=== PATIENT | female | born 1970 | race Caucasian/White ===

== ENCOUNTER 2018-10-17 12:21 | Inpatient (IN) | payer OTHER ==
[~2018-10-17] VITALS: Ht 162.6 cm; Wt 72.6 kg
[2018-10-17 12:21] VITALS: BP 126/57
[2018-10-17 13:00] LABS: URINE BILIRUBIN NEGATIVE (Negative); URINE BLOOD NEGATIVE (Negative); URINE CLARITY CLEAR; URINE COLOR YELLOW; URINE GLUCOSE-RANDOM* NEGATIVE (Negative); URINE KETONES 1+ (Negative); URINE LEUKOCYTES NEGATIVE (Negative); URINE NITRITE NEGATIVE (Negative); URINE PROTEIN (DIPSTICK) TRACE (Negative); URINE UROBILINOGEN 0.2 E.U./dl (0.2-1.0)
[2018-10-17] MEDS ORDERED: WELLBUTRIN XL300 MG PO (13:00)
[2018-10-17] MEDS ORDERED: FLECAINIDE ACET50 M1 PO (13:00)
[2018-10-17 13:01] LABS: ABSOLUTE NEUTROPHILS 8.7 thou/uL (1.4-8.2); BASOPHILS 0.5 % (0.0-2.0); EOSINOPHILS 0.2 % (0.0-3.0); HEMATOCRIT 42.7 % (37.0-47.0); HEMOGLOBIN 14.4 gm/dL (12.0-15.0); LYMPHOCYTES 16.4 % (24.0-44.0); MCH 30.7 pg (26.0-34.0); MCHC 33.8 g/dL (28.0-37.0); MCV 90.9 fL (80.0-100.0); PLATELET COUNT 275 thou/uL (150-400); POLYS 78.9 % (36.0-66.0); RDW 12.8 % (10.5-14.5)
[2018-10-17] MEDS ORDERED: LO LOESTRIN FE1 EACH PO (13:01)
[2018-10-17] MEDS ORDERED: BYSTOLIC2.5 MG PO (13:01)
[2018-10-17] MEDS ORDERED: SYNTHROID100 MC1 PO (13:01)
[2018-10-17] MEDS ORDERED: LEXAPRO 10 MG T10 M1 PO (13:02)
[2018-10-17 13:09] LABS: CALCIUM 9.6 mg/dL (8.5-10.1); CREATININE 1.1 mg/dL (0.6-1.0); POTASSIUM 4.1 mmol/L (3.5-5.1)
[2018-10-17 13:15] LABS: ALBUMIN 3.9 g/dL (3.4-5.0); TOTAL BILIRUBIN 0.7 mg/dL (<0.1-1.0); TOTAL PROTEIN 7.6 g/dL (6.4-8.2)
[2018-10-17 14:08] VITALS: BP 140/100
--- NOTE | 2018-10-17 14:13 | NUR ---
INPATIENT UNIT CALLED FOR REPORT, PER STAFF ANSWERING PHONE THE RECEIVING NURSE WAS IN A PT ROOM AND WILL CALL BACK FOR REPORT
[2018-10-17 14:28] VITALS: BP 152/94
--- NOTE | 2018-10-17 14:52 | NUR ---
REPORT GIVEN TO PADILLA IN PREOP; REQUESTING IV TEAM TO INPT ROOM FOR 2ND IV PLACE MENT
--- NOTE | 2018-10-17 15:53 | NUR ---
IV TEAM REQUESTED TO INPT ROOM FOR 2ND IV PLACEMENT
[2018-10-17 15:58] VITALS: BP 132/81
--- NOTE | 2018-10-17 16:04 | NUR ---
ARIE, PHARMACIST, WILL SEND CEFTRIAXONE TO INPT ROOM FOR ADMIN ONCE 2ND IV PLACED BY ANNA ESCALERA RN; PADILLA IN SURGERY AWARE OF SITUATION
--- NOTE | 2018-10-17 18:17 | NUR ---
48 YO FEMALE ADMITTED TO 449 BY CART FROM ED. A&OX4, AMBULATED WITH STANDBY ASSIST. IV WAS INTACT IN L FA INFUSING LR. PT WAS IN PAIN UPON ADMISSION AT 7/10 AND VOMITING. FAMILY FREIND AT HER BEDSIDE. CRITICAL LAB LACTIC ACID 5.3 CALLED TO OFFICE. ARRIVED AND WAS AWARE OF LAB RESULTS AND ORDERED PAIN AND N/V MEDS ALONG WITH BOLUS OF LR, AT THE SAME TIME ER ARRIVED TO SYSTEMS COORDINATOR PT FOR OR. WILL CONT POC.
[2018-10-17 19:32] VITALS: BP 131/88
[2018-10-17 23:30] VITALS: BP 123/82
[2018-10-18 00:09] VITALS: BP 100/67
--- NOTE | 2018-10-18 02:11 | NUR ---
ASSUMED CARE AROUND 1930. PT RETURNED FROM LAP APPY SURGERY WITH . LAP SITES CDI. PAIN MANANGED PER MD ORDER WITH ADEQUATE RELIEF. PT VOID 50CC TILL 10PM. BLADDER SCAN OBTAINED WITH 160CC. LATER PT STARTED VOIDING IN LARGER AMOUNT. NO S/S ACUTE DISTRESS NOTED OR REPORTED AT THIS TIME. WILL CONT TO MONITOR FOR ANY CHANGES IN CONDITION.
[2018-10-18 03:42] VITALS: BP 117/58
[2018-10-18 05:46] LABS: ALBUMIN 2.9 g/dL (3.4-5.0); CALCIUM 8.3 mg/dL (8.5-10.1); MAGNESIUM 1.7 mg/dL (1.8-2.4); PHOSPHORUS 3.6 mg/dL (2.5-4.9); POTASSIUM 3.7 mmol/L (3.5-5.1)
[2018-10-18 05:48] LABS: HEMATOCRIT 35.4 % (37.0-47.0); MCH 31.1 pg (26.0-34.0); MCHC 34.1 g/dL (28.0-37.0); MCV 91.4 fL (80.0-100.0); RBC 3.88 mil/uL (4.20-5.00); RDW 12.7 % (10.5-14.5); WBC 7.3 thou/uL (4.0-11.0)
[2018-10-18 06:06] LABS: HEMOGLOBIN 12.1 gm/dL (12.0-15.0)
[2018-10-18 08:13] VITALS: BP 94/51
[2018-10-18 13:57] VITALS: BP 92/53
--- NOTE | 2018-10-18 14:38 | NUR ---
PT ADMITTED RELATED TO APPENDICITIS. CM REVIEWED CHART AND SPOKE WITH CARE TEAM. CM MET WITH PT AT BEDSIDE THIS DAY. PT IS A&O X4. CM ROLE INTRODCUED. PT INDICATED SHE LIVES ALONE IN A HOUSE. 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 PT INDICATED SHE PLANS TO RETURN HOME ONCE MEDICALLY STABLE. CM TO FOLLOW INDICATED WITH DC PLANNING.
--- NOTE | 2018-10-18 15:40 | NUR ---
PATIENT PROGRESSING WELL TOWARDS DISCHARGE GOALS. AMBULATED IN OLSON WITH STANDBY ASSIST WITH IV PUMP. WALKED 2 LAPS AROUND 4W. UP TO BATHROOM AND VOIDING WITHOUT DIFFICULTY AND IN ADEQUATE AMOUNTS. TOLERATING REGULAR DIET. PAIN WELL CONTROLLED. 3 LAP INCISIONS INTACT WITH DERMABOND. ENCOURAGED COUGH AND DEEP BREATHE. SAT UP IN CHAIR FOR 2 HOURS. CALLING APPROPRIATELY FOR ASSIST TO BATHROOM. VERY PLEASANT AND COOPERATIVE PATIENT.
[2018-10-18 19:22] VITALS: BP 94/56
[2018-10-19 03:15] VITALS: BP 96/52
--- NOTE | 2018-10-19 04:02 | NUR ---
ASSUMED CARE OF PT @1900. PT A&OX4. C/O OF PAIN WHICH IS WELL CONTROLLED WITH CURRENT PAIN REGIMEN. NO C/O N/V. SCOPOLAMINE PATCH IN PLACED. LAP SITES; CLEAN, DRY AND INTACT. WILL CONT TO MONITOR FOR PAIN
[2018-10-19 08:00] VITALS: BP 111/59
--- NOTE | 2018-10-19 10:10 | NUR ---
per surgical instrument maker new order inpt
[2018-10-19] MEDS ORDERED: CEFDINIR300 MG PO (14:09)
[2018-10-19] MEDS ORDERED: METRONIDAZOLE500 M4 PO (14:10)
[2018-10-19] MEDS ORDERED: OXYCODONE HCL 55 MG PO (14:11)
[2018-10-19] MEDS ORDERED: IBUPROFEN 200200 M1 PO (14:11)
[2018-10-19] MEDS ORDERED: ACETAMINOPHEN325 M1 PO (14:11)
[2018-10-19] MEDS ORDERED: COLACE 100 MG100 MG PO (14:12)
[2018-10-19] MEDS ORDERED: MIRALAX17 GM PO (14:12)
--- NOTE | 2018-10-19 15:02 | NUR ---
pt still having some pain and hasn't had a bm. pt to dc home with no needs tomorrow monday. no oter cm intervention indicate. case closed.
--- NOTE | 2018-10-19 19:06 | PATH ---
[facility] [place] [address] [place] [address] PATHOLOGY RPT PROCEDURE Name: ODALIS CROOK Room #: 449-I ADM IN M.R.#: [id number] Admission: 10/17/18 Date of : 66 Discharge: Report #: [id number] Path Case #: [id number] [facility] Accession Number: [id number] . 01 Material submitted: . appendix - APPENDIX . 01 Clinical history: . Appendicitis . 02 Diagnosis: Appendix, appendectomy: - Acute appendicitis along with marked serositis. 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 02 Electronically signed: . Margarette Navarro MD, Pathologist NPI- [id number] . 01 Gross description: . The specimen is received in formalin, labeled "Odalis Crook, appendix" and consists of a curved appendix measuring 7.8 in length and up to 1.3 in diameter with mesoappendix measuring 2.6 thick. The serosa is pink-norman with fibrous adhesions and exudate. The margin is closed with a line of blake and inked black. Sectioning reveals a dilated lumen containing green-brown fecal material. Hand Rigger sections are submitted in A1. (SDY; 10/18/2018) SYU/SYU . 02 Pathologist provided ICD-10: K35.80, K65.8 . 02 CPT . 233571 Specimen Comment: A courtesy copy of this report has been sent to Specimen Comment: [phone]. Specimen Comment: Report sent to Performed at: [address], [place], [place] [id number] MD Anoop Guevara MD Phone: [phone] Performed at: [address] [id number] MD Margarette Navarro MD Phone: [phone]
[2018-10-19 19:45] VITALS: BP 106/49
--- NOTE | 2018-10-19 20:06 | NUR ---
ASSUMED CARE OF PATIENT AT 0715, PATIENT ALERT AND ORIENTED X 4. PATIENT UP WITH 1 ASSIST. PATIENT HAD APPENDIX REMOVED, 3 LAP SITES, C/D/I. PATIENT CONTINUES WITH PAIN WITH ABDOMEN. RECEVING DILAUDID 0.5MG AND OXYCODONE, NEW ORDERS FOR TYLENOL 650 MG ANG MOTRIN 600MG SCHEDULED. RECEIVED MIRALAX AND STOOL SOFTNER THIS AM, NO BM THIS SHIFT, SMALL AMT OF PASSING GAS. NO NAUSEA TGIS SHIFT, APPETITE STILL NOT VERY GOOD. RIGHT FOREARM IV NOT GOOD, CALLED IV TEAM NEW IV LEFT UPPER ARM. PATIENT MAY DISCHARGE TOMORROW IF PAIN BETTER. WILL CONTINUE TO MONITOR.
[2018-10-20 00:15] VITALS: BP 93/63
--- NOTE | 2018-10-20 03:00 | NUR ---
ASSUMED CARE OF PT @1900. PT A&OX4. PAIN IS WELL CONTROLLED WITH CURRENT REGIMEN. NO C/O OF N/V. SCOPOLAMINE PATCH IN PLACE. NO BM YET, ACTIVE BS. PT WALKED AROUND THE UNIT AND SAID SHE FELT BETTER. LAP APPY SITES LOOKS CLEAN, DRY AND INTACT. PT WALKS TO THE BR WITH STANDBY ASSIST
[2018-10-20 04:46] VITALS: BP 92/61
[2018-10-20 09:13] VITALS: BP 98/61
--- NOTE | 2018-10-20 12:08 | NUR ---
Received awake on bed. Due medications given as prescribed, able to swallow tablets w/o difficulty. A+Ox4. On room air. With LR at 75cc/hr, infusing well at L upper arm. Pt able to ambulate around the room. Complained of pain, pain medications given as prescribed. Pt' s abdominal surgical wounds checked- 3 wounds noted with dermabond, C/D/I- no signs of infection noted. Vital signs stable.
[2018-10-20 16:02] VITALS: BP 115/66
[2018-10-20 17:42] VITALS: BP 115/66
== END 2018-10-20 18:45 | disposition home or self-care (01) | DRG 339 ==
LOC: ER 12:21 → EROBS 13:56 → 4W 13:56
PROVIDERS: Emergency Medicine; ADMIT Surgery
PROC: 0DTJ4ZZ Resection of Appendix, Percutaneous Endoscopic Approach (ICD-10-PCS; principal; 2018-10-17)
DX: K35.33 Acute appendicitis with perforation, localized peritonitis, and gangrene, with abscess (principal); E87.2 Acidosis; K31.84 Gastroparesis; E03.9 Hypothyroidism, unspecified; F32.9 Major depressive disorder, single episode, unspecified; Z80.3 Family history of malignant neoplasm of breast; Z80.42 Family history of malignant neoplasm of prostate; Z88.8 Allergy status to other drugs, medicaments and biological substances; Z80.1 Family history of malignant neoplasm of trachea, bronchus and lung
CPT/HCPCS: 10040; 50010; 50101; 50249; 50411; 50555; 50558; 50739; 50740; 51489; 51975; 52265; 52266; 53307; 53310; 54022; 54118; 56526; 62110; 62900; 70005

== ENCOUNTER 2018-10-22 18:09 | Inpatient (IN) | payer OTHER ==
[~2018-10-22] VITALS: Ht 162.6 cm; Wt 68.9 kg
[~2018-10-22 18:09] MED LIST: ACETAMINOPHEN325 M1 PO; BYSTOLIC2.5 MG PO; CEFDINIR300 MG PO; COLACE 100 MG100 MG PO; FLECAINIDE ACET50 M1 PO; IBUPROFEN 200200 M1 PO; LEXAPRO 10 MG T10 M1 PO; LO LOESTRIN FE1 EACH PO; METRONIDAZOLE500 M4 PO; MIRALAX17 GM PO; OXYCODONE HCL 55 MG PO; SYNTHROID100 MC1 PO; WELLBUTRIN XL300 MG PO
[2018-10-22 18:10] VITALS: BP 135/85
[2018-10-22 19:05] LABS: ABSOLUTE NEUTROPHILS 8.6 thou/uL (1.4-8.2); EOSINOPHILS 0.2 % (0.0-3.0); HEMOGLOBIN 12.6 gm/dL (12.0-15.0); LYMPHOCYTES 9.4 % (24.0-44.0)
[2018-10-22 19:07] LABS: BASOPHILS 0.2 % (0.0-2.0); HEMATOCRIT 36.8 % (37.0-47.0); MCHC 34.1 g/dL (28.0-37.0); MONOCYTES 3.8 % (1.0-8.0); POLYS 86.4 % (36.0-66.0); RBC 4.05 mil/uL (4.20-5.00); RDW 12.6 % (10.5-14.5); WBC 12.7 thou/uL (4.0-11.0)
[2018-10-22 19:12] LABS: URINE BILIRUBIN NEGATIVE (Negative); URINE BLOOD NEGATIVE (Negative); URINE CLARITY CLEAR; URINE COLOR YELLOW; URINE GLUCOSE-RANDOM* NEGATIVE (Negative); URINE KETONES 3+ (Negative); URINE LEUKOCYTES-REFLEX NEGATIVE (Negative); URINE NITRITE-REFLEX NEGATIVE (Negative); URINE PROTEIN (DIPSTICK) NEGATIVE (Negative); URINE UROBILINOGEN 0.2 E.U./dl (0.2-1.0)
[2018-10-22 19:13] LABS: CALCIUM 8.6 mg/dL (8.5-10.1); CREATININE 0.8 mg/dL (0.6-1.0); POTASSIUM 4.5 mmol/L (3.5-5.1)
[2018-10-22 19:19] LABS: ALBUMIN 3.1 g/dL (3.4-5.0); TOTAL BILIRUBIN 0.4 mg/dL (<0.1-1.0); TOTAL PROTEIN 7.1 g/dL (6.4-8.2)
[2018-10-22 19:55] LABS: PLATELET COUNT 252 thou/uL (150-400)
[2018-10-22 22:11] VITALS: BP 146/86
[2018-10-22 23:15] VITALS: BP 125/77
[2018-10-23] MEDS ORDERED: FLEXERIL PO (02:57)
[2018-10-23] MEDS ORDERED: MINOCIN50 MG PO (02:57)
[2018-10-23] MEDS ORDERED: ONDANSETRON HCL4 M2 PO (02:59)
--- NOTE | 2018-10-23 04:10 | NUR ---
ASSUMED CARE OF PATIENT FROM ER. PAIN MANAGED AT THAT TIME. ADMISSION COMPLETE. NURSE PRACTITIONER IN TO SEE PATIENT. FLUIDS INFUSING. FRIEND AT BEDSIDE. C/O PAIN AND NAUSEA. 15 MINUTES LATER STATES ITS NOT ENOUGH. ORDERS OBTAINED FOR TORADOL. WILL CONTINUE TO MONITOR. NPO AFTER MIDNIGHT.
[2018-10-23 07:25] VITALS: BP 112/68
--- NOTE | 2018-10-23 12:49 | NUR ---
PT A&OX4, VSS, PAIN IN ABD. PT RESTING IN BED. DENIES N/V. PATIENT ADVANCED TO CLEAR LIQUIDS BUT DOES NOT WANT TO EAT AT THIS TIME. LAP SITES C/D/I, WILL CONTINUE TO MONITOR.
--- NOTE | 2018-10-23 13:58 | NUR ---
PT ADMITTED RELATED TO N/V. CM REVIEWED CHART AND SPOKE WITH CARE TEAM. CM MET WITH PT AT BEDSIDE THIS DAY. PT IS A&O X4. CM ROLE INTRODUCED. 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 PT INDICATED SHE PLANS TO RETURN HOME [place] MEDICALLY STABLE. CM TO FOLLOW INDICATED SHOULD ANY DC NEEDS ARISE.
[2018-10-23 14:52] VITALS: BP 124/82
[2018-10-23 19:05] VITALS: BP 134/87
--- NOTE | 2018-10-24 03:34 | NUR ---
ASSUMED CARE FROM DAY SHIFT PT GIVEN CLEAR LIQ DIET TOLERATED WELL WITHUT PAIN OR NAUSEA, DISCUSSED PLAN OF CARE VERBALIZED UNDERSTANDING. DENIES LOOSE STOOL PT RESTED WELL THROUGHOUT HOURLY ROUNDS, WILL CONTINUE WITH CURRENT PLAN OF CARE AND WILL REPORT CHANGES OR ABNORMAL FINDINGS.
--- NOTE | 2018-10-24 11:32 | NUR ---
PT A&OX4, VSS, DENIES PAIN AND N/V. PATIENT IS HAVING DIARRHEA BUT IS TAKING STOOL SOFTENERS. PATIENT AMBULATED IN HALLWAY, HAS BEEN SLEEPING IN ROOM FOR MOST OF THE DAY OTHERWISE. DIET ADVANCED TO REGULAR DIET AND IS TOLERATING. WILL CONTINUE TO MONITOR.
[2018-10-24 14:21] VITALS: BP 124/84
[2018-10-24 15:01] VITALS: BP 124/84
== END 2018-10-24 16:54 | disposition home or self-care (01) | DRG 392 ==
LOC: ER 18:09 → EROBS 21:07 → 4W 21:07
PROVIDERS: Physician Assistant; ADMIT Hospitalist
DX: K52.9 Noninfective gastroenteritis and colitis, unspecified (principal); K31.84 Gastroparesis; E03.9 Hypothyroidism, unspecified; F32.9 Major depressive disorder, single episode, unspecified; Z80.3 Family history of malignant neoplasm of breast; Z80.42 Family history of malignant neoplasm of prostate; Z80.1 Family history of malignant neoplasm of trachea, bronchus and lung; Z90.89 Acquired absence of other organs; Z88.8 Allergy status to other drugs, medicaments and biological substances; Z79.899 Other long term (current) drug therapy; Z80.8 Family history of malignant neoplasm of other organs or systems
CPT/HCPCS: 10040; 10045

== ENCOUNTER → 2020-02-05 | Outpatient (CLI) | payer OTHER ==
[~2020-02-05] MED LIST changes: +FLEXERIL PO; +MINOCIN50 MG PO; +ONDANSETRON HCL4 M2 PO
== END ==
LOC: CAT 11:50
PROVIDERS: ATTEND Internal Medicine Cardiovascular Disease
DX: Z13.6 Encounter for screening for cardiovascular disorders (principal); E78.00 Pure hypercholesterolemia, unspecified; I25.10 Atherosclerotic heart disease of native coronary artery without angina pectoris

== ENCOUNTER → 2021-02-22 | Outpatient (CLI) | payer OTHER | LOC: SJCVCIMAG 06:31 | PROVIDERS: ATTEND Internal Medicine Cardiovascular Disease | DX: I49.3 Ventricular premature depolarization (principal) ==